=== PATIENT | male | born 2000 | race Caucasian/White ===

== ENCOUNTER → 2020-08-15 | Outpatient (CLI) | payer OTHER ==
--- NOTE | 2020-08-15 13:39 | PFTRPT ---
Visit Date: 08/15/2020 Second ID: [id number] Referring Doctor: LISA RAY Height: 64.00 Inches Weight: 160.00 Lbs BSA: 1.78 Diagnosis: ASTHMA TECHNIQUE: Pre- and post-bronchodilator study of excellent technical quality. FINDINGS: Forced vital capacity is normal. FEV1 is out of proportion of obstructive index; therefore, reduced. Expiratory limit within the flow-volume loop is consistent with flow rate limitation. No significant bronchodilator response identified. Total lung capacity normal. Residual volume does suggest significant air trapping. Diffusing capacity is reduced, but does correct for alveolar volume. No hemoglobin available for correction. Airway resistance is mildly elevated with concomitant decrease in the airway conductance. IMPRESSION: Moderately obstructive ventilatory impairment with underlying air trapping. Please correlate clinically. MTDD
== END ==
LOC: EDSEX 12:53 → M CARPUL 12:53
PROVIDERS: ATTEND General Practice
DX: J45.909 Unspecified asthma, uncomplicated (principal)

== ENCOUNTER → 2020-08-22 | Outpatient (CLI) | payer OTHER ==
[~2020-08-22] MED LIST: METHACHOLINE KIT (J7674) INH ONE
--- NOTE | 2020-08-22 13:31 | PFTRPT ---
Visit Date: 08/22/2020 Second ID: [id number] Referring Doctor: LISA RAY Height: 64.00 Inches Weight: 160.00 Lbs BSA: 1.78 Diagnosis: KAYE QUALITY: Study of excellent technical quality. PROCEDURE: Under protocol, methacholine was administered. At a dose of 0.025 mg or 0.125 CDUs, a 23% decline of the FEV1 was noted. Flow rates did return to baseline post-bronchodilator administration. IMPRESSION: Positive methacholine challenge study. MTDD
== END ==
LOC: M CARPUL 12:52
PROVIDERS: ATTEND General Practice
DX: J45.909 Unspecified asthma, uncomplicated (principal)
CPT/HCPCS: 94070; J7674